=== PATIENT | female | born 1995 | race Two or more races ===

== ENCOUNTER 2024-04-13 19:32 | Emergency (ER) | payer SELFPAY ==
[~2024-04-13] VITALS: Ht 162.6 cm; Wt 55.6 kg
[2024-04-13 20:40] LABS: Urine Bacteria None Seen /hpf (None Seen)
[2024-04-13 20:58] LABS: Urine Blood Negative /uL (Negative); Urine Clarity Clear (Clear); Urine Color Light-Yellow (Yellow); Urine Protein, UAD Negative (Negative); Urine Squamous Epithelial Cell FEW /hpf (<5); Urine Urobilinogen Normal (Negative); Urine WBC 1 /hpf (0 - 5); Urine pH 7.5 (5.0-9.0)
--- NOTE | 2024-04-13 22:02 | DVH ---
INDICATION: Right upper quadrant TECHNIQUE: Multiple real-time sonographic images of the abdomen were obtained. COMPARISON: None FINDINGS: The liver is homogenous in echogenicity. The liver measures 14.41 cm. No intrahepatic erick iary ductal dilatation is noted. The gallbladder wall measures 0.44 cm and is unremarkable. Cholelithiasis which appear mobile. The common duct measures 0.52 cm and is unremarkable. No pericholecystic fluid is noted. Negative ultra sound Suárez's sign The right kidney measures 11.18 cm. No hydronephrosis. The pancreas is normal The visualized portions of the IVC and aorta are grossly unremarkable. IMPRESSION: 1. Liver measures 14.4 cm long 2. Cholelithiasis noted with no dilated duct. Negative ultrasound suárez's sign is elicited
[2024-04-13] MEDS ORDERED: ZOFR4T PO (22:10)
[2024-04-13] MEDS ORDERED: ACET500T58 PO (22:10)
[2024-04-13] MEDS ORDERED: IBUP-1454 PO (22:10)
--- NOTE | 2024-04-13 22:11 | ED.PDOC ---
GI ASSESSMENT HPI Comments This patient is a pleasant 28-year-old female with a history of gallstones who arrives to the ED today for evaluation of gallbladder pain. Patient states the pain came on yesterday and has abdomen flowed since. Patient states intermittent nausea without vomiting. Vital signs were stable on arrival. 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 History Family History Family History: Reviewed,noncontributory to illness, No family hx of Cancer, No family hx of DM, No family hx of Heart fr[place], No family hx of HTN, No family hx ofKidney fransisco, No family hx of Liver fransisco, No family hx of Lung fransisco, No family hx of Stroke Social History Smoker: Non-Smoker Alcohol: Denies ETOH Use Drugs: Denies Drug Use Lives In: Home Constitutional: denies: chills, diaphoresis, fatigue, fever, malaise, sweats, weakness, others EENTM: denies: blurred vision, double vision, ear bleeding, ear discharge, ear drainage, ear pain, ear ringing, eye pain, eye redness, hearing loss, mouth pain, mouth swelling, nasal discharge, nose bleeding, nose congestion, nose pain, photophobia, tearing, throat pain, throat swelling, voice changes, others Respiratory: denies: cough, hemoptysis, orthopnea, SOB at rest, shortness of breath, SOB with excertion, stridor, wheezing, others Cardiovascular: denies: chest pain, dizzy spells, diaphoresis, Dyspnea on exertion, edema, irregular heart beat, left arm pain, lightheadedness, palp itations, PND, syncope, others Gastrointestinal: reports: abdominal pain, nausea; denies: abdomen distended, blood streaked bowels, constipated, diarrhea, dysphagia, difficulty swallowing, hematemesis, melena, poor appetite, poor fluid intake, rectal bleeding, rectal pain, vomiting, others Genitourinary: denies: abnormal vagina bleeding, burning, dyspareunia, dysuria, flank pain, frequency, hematuria, incontinence, pain, , vagina discharge, urgency, others Neurological: denies: dizziness, fainting, headache, left sided numbness, left sided weakness, numbness, paresthesia, pre-existing deficit, right sided numbness, right sided weakness, seizure, speech problems, tingling, tremors, weakness, others Musculoskeletal: denies: back pain, gout, joint pain, joint swelling, muscle pain, muscle stiffness, neck pain, others Integumetry: denies: bruises, change in color, change in hair/nails, dryness, laceration, lesions, lumps, rash, wounds, others Allergic/Immunocompromised: denies: Difficulty Healing, Frequent Infections, Hives, Itching, others Hematologic/Lymphatic: denies: anemia, blood clots, easy bleeding, easy bruising, swollen glands, others Endocrine: denies: excessive hunger, excessive sweating, excessive thirst, excessive urination, flushing, intolerance to cold, intolerance to heat, unex plained weight gain, unexplained weight loss, others Psychiatric: denies: anxiety, bipolar disorder, depression, hopeless, panic disorder, schizophrenia, sleepless, suicidal, others Physical Exam General Appearance: Moderate Distress ([id number] distress due to right upper quadrant pain.), Normal HEENT: Normal ENT Inspection, Pharynx Normal, TMs Normal Neck: Full Range of Motion, Non-Tender, Normal, Normal Inspection Respiratory: Chest Non-Tender, Lungs Clear, No Accessory Muscle Use, No Respiratory Distress, Normal Breath Sounds Cardiovascular: No Edema, No JVD, No Murmur, No Gallop, Normal Peripheral Pulses, Regular Rate/Rhythm Breast Exam: Deferred Gastrointestinal: Tenderness (Diffuse right upper quadrant tenderness to palpation. No definitive Suárez sign. Abdomen was reasonably soft.) Genitalia: Deferred Pelvic: Deferred Rectal: Deferred Extremities: No calf tenderness, Normal capillary refill, Normal inspection, Normal range of motion, Non-tender, No pedal edema Neurologic: Alert, No Motor Deficits, Normal Affect, Normal Mood, No Sensory Deficits Cerebellar Function: Normal Reflexes: Normal Skin: Dry, Normal Color, Warm Lymphatic: No Adenopathy Was a procedure done? Was a procedure done?: No GI differential Dx Differential Diagnosis: Cholangitis, Cholecystitis, Other (Cholelithiasis, biliary colic) X-Ray, Labs, Meds, VS Vital Signs Date Time Temp Pulse Resp B/P (MAP) Pulse Ox O2 Delivery O2 Flow Rate FiO2 04/13/24 19:58 98.5 86 18 109/69 (82) 100 Lab Test 04/13/24 19:56 Range/Units Urine Color Light-yellow Yellow Urine Clarity Clear Clear Urine pH 7.5 5.0-9.0 Urine Specific [place] 1.020 1.001-1.035 Urine Protein Negative Negative Urine Ketones Negative Negative Urine Blood Negative Negative /uL Urine Nitrite Negative Negative Urine Bilirubin Negative Negative Urine Urobilinogen Normal Negative mg/dL Urine Leukocyte Esterase Negative Negative /uL Urine RBC 6 0 - 4 /hpf Urine WBC 1 0 - 5 /hpf Urine Squamous Epithelial Cells Few <5 /hpf Urine Bacteria None seen None Seen /hpf Urine Glucose Normal Normal mg/dL Urine Test Negative Negative X-Ray, Labs, Meds, VS Comment All studies performed the ED were evaluated by me personally. Urine studies were unremarkable for UTI and ultrasound report was unremarkable for a cholecystitis event. Patient does have confirmed gallstones. Advised patient follow up with the primary care provider for continued discussions of long-term management of her gallstone condition. Time of 1ST Reevaluation: 22:07 Reevaluation 1ST: Improved Consultation: PCP Patient Education/Counseling: Diagnosis, Treatment Family Education/Counseling: Diagnosis, Treatment Departure 1 Departure Time of Disposition: 22:09 Impression: Primary Impression: Biliary colic symptom Disposition: HOME / SELF CARE / HOMELESS Condition: Stable Additional Instructions: Advised patient utilize pain medication as needed and additionally, patient s sonnyuld follow up with her primary care provider for discussions related to her gallstone condition. e-Prescriptions Ondansetron Odt 4MG Tab (ZOFRAN PO) 4 Mg Tb 4 MG PO Q6HP PRN, #15 TAB ODT TAB-DISSOLVE IN MOUTH, THEN SWALLOW Prov: RDAHIKA SHIELDS PAC 04/13/24 Acetaminophen (Acetaminophen) 500 Mg Tab 500 MG PO Q4HP PRN, #30 TAB Prov: RADHIKA SHIELDS PAC 04/13/24 Ibuprofen (Ibuprofen) 600 Mg Tab 1 TAB PO Q6HP PRN, #20 TAB Prov: RADHIKA SHIELDS PAC 04/13/24 Discharged With: Self, Friend Critical Care Note Critical Care Time?: No Stability Stability form required: No Heart Score Heart Score: Heart Score Response (Comments) Value History N/A 0 EKG N/A 0 Age N/A 0 Risk Factors N/A 0 Troponin N/A 0 Total 0 RADHIKA SHIELDS PAC Apr 13, 2024 22:11
[2024-04-13 22:43] VITALS: BP 100/55; TEMP 98.6
[2024-04-13] MEDS: DICYCLOMINE HCL (10MG/ML) 2 ML AMPULE IM ONE (22:46)
[2024-04-13] MEDS: ONDANSETRON ODT 4 MG TAB PO ONE (22:46)
[2024-04-13] MEDS: KETOROLAC TROMETH 60MG/2ML VIAL IM ONE (22:46)
[2024-04-13 22:55] VITALS: PULSE 79; RESP 16; O2SAT 100
== END 2024-04-13 22:59 | disposition home or self-care (01) ==
LOC: ER 19:32
DX: K80.70 Calculus of gallbladder and bile duct without cholecystitis without obstruction (principal)
CPT/HCPCS: 76705; 81001; 81025; 96372; 99285; J0500; J1885